=== PATIENT | female | born 1990 | race Caucasian/White ===

== ENCOUNTER → 2016-12-31 | Outpatient (CLI) | payer BC | LOC: MOB LAB 13:08 | PROVIDERS: ATTEND Obstetrics & Gynecology | DX: Z36 Encounter for antenatal screening of mother (principal) | CPT/HCPCS: 36415; 84702; 87491; 87591 ==

== ENCOUNTER → 2017-01-27 | Outpatient (CLI) | payer OTHER ==
[2017-01-27 10:14] LABS: BASOPHILS # (AUTO) 0.03 10*3/UL; BASOPHILS % (AUTO) 0.5 % (0-1); HEMATOCRIT 42.8 % (37.0-47.0); HEMOGLOBIN 14.8 g/dL (12.0-16.0); IMM GRAN % (AUTO) 0.2 % (0-5); IMM GRAN# (AUTO) 0.01 10*3/UL; LYMPHOCYTES # (AUTO) 1.41 10*3/uL; LYMPHOCYTES % (AUTO) 24.4 % (10-50); MEAN CORPUSCULAR HEMOGLOBIN 29.4 PG (27-31); MEAN CORPUSCULAR HGB CONC 34.6 g/dL (33-37); MEAN PLATELET VOLUME 10.8 FL (7.4-12.2); MONOCYTES # (AUTO) 0.42 10*3/UL (0.3-0.8); MONOCYTES % (AUTO) 7.3 % (5-15); NEUTROPHILS # (AUTO) 3.85 10*3/UL; NEUTROPHILS % (AUTO) 66.6 % (50-80); RDW COEFFICIENT OF VARIATION 13.6 % (11.5-14.5); RED BLOOD COUNT 5.04 10^6/uL (4.20-5.40); WHITE BLOOD COUNT 5.78 10^3/uL (4.8-10.8)
[2017-01-27 10:18] LABS: PRENATAL QUESTION YES (Y)
[2017-01-27 10:19] LABS: PLATELET MORPHOLOGY COMMENT NORMAL MORPHOLOGY (NORM)
[2017-01-27 12:12] LABS: HIV ANTIBODY NEGATIVE (N); HIV-1 P24 ANTIGEN NEGATIVE (N)
[2017-01-28 11:15] LABS: HEP B SURFACE AG Negative (Negative)
[2017-01-28 13:51] LABS: RUBELLA IGG INDEX 1.7 (()); SYPHILIS IGG WITH REFLEX Negative (Negative)
== END ==
LOC: MOB LAB 09:16
PROVIDERS: ATTEND Obstetrics & Gynecology
DX: Z36 Encounter for antenatal screening of mother (principal)
CPT/HCPCS: 36415; 80081; 86900; 86901; 87088

== ENCOUNTER 2017-02-02 08:52 | Emergency (ER) | payer OTHER ==
[2017-02-02 09:15] VITALS: RESP 16; TEMP 96.8
[2017-02-02] MEDS ORDERED: NORMAL SALINE 10 ML SYRINGE FLUSH IVP PRN (09:23)
[2017-02-02] MEDS ORDERED: ONDANSETRON 4 MG/2 ML VIAL IVP ONE (09:23)
[2017-02-02] MEDS ORDERED: Sodium Chloride 0.9% 1,000 ML PRIMARY IV ONE (09:23)
[2017-02-02] MEDS ORDERED: ONDANSETRON 4 MG/2 ML VIAL ONE (09:25)
[2017-02-02 09:38] LABS: BASOPHILS # (AUTO) 0.03 10*3/UL; BASOPHILS % (AUTO) 0.5 % (0-1); EOSINOPHILS % (AUTO) 0.8 % (0-8); HEMATOCRIT 40.3 % (37.0-47.0); HEMOGLOBIN 13.9 g/dL (12.0-16.0); IMM GRAN % (AUTO) 0.2 % (0-5); IMM GRAN# (AUTO) 0.01 10*3/UL; LYMPHOCYTES # (AUTO) 1.63 10*3/uL; LYMPHOCYTES % (AUTO) 26.5 % (10-50); MEAN CORPUSCULAR HEMOGLOBIN 29.2 PG (27-31); MEAN CORPUSCULAR HGB CONC 34.5 g/dL (33-37); MEAN PLATELET VOLUME 10.3 FL (7.4-12.2); MONOCYTES # (AUTO) 0.43 10*3/UL (0.3-0.8); NEUTROPHILS # (AUTO) 3.99 10*3/UL; RDW COEFFICIENT OF VARIATION 13.4 % (11.5-14.5); RED BLOOD COUNT 4.76 10^6/uL (4.20-5.40); WHITE BLOOD COUNT 6.14 10^3/uL (4.8-10.8)
[2017-02-02 09:39] LABS: AMYLASE 76 U/L (30-110); ASPARTATE AMINO TRANSFERASE 14 IU/L (8-39); BILIRUBIN,TOTAL 0.4 mg/dL (0.3-1.2); BLOOD UREA NITROGEN 6 mg/dL (7-22); CALCIUM 9.1 mg/dL (8.7-10.7); CHLORIDE 106 meq/L (98-112); CREATININE 0.5 mg/dL (0.50-1.20); EST GLOMERULAR FILTRATION > 60 (>60 ml/min/1.73m(2)); GLUCOSE 90 mg/dL (78-110); POTASSIUM 3.7 meq/L (3.8-5.2); SODIUM 138 meq/L (135-145); TOTAL PROTEIN 6.9 g/dL (6.1-8.0)
[2017-02-02 09:41] LABS: PLATELET MORPHOLOGY COMMENT NORMAL MORPHOLOGY (NORM)
[2017-02-02] MEDS ORDERED: ACETAMINOPHEN 325 MG TABLET PO ONE (10:09)
[2017-02-02 10:33] LABS: BILIRUBIN,URINE NEGATIVE (NEG); CLARITY,URINE CLEAR (CLEAR); GLUCOSE, URINE (UA) NEGATIVE (NEG); LEUKOCYTE ESTERASE ,URINE NEGATIVE (NEG); NITRATE,URINE NEGATIVE (NEG); OCCULT BLOOD,URINE NEGATIVE (NEG); PH,URINE 5.5 (5.0-8.5); PROTEIN,URINE NEGATIVE (NEG); UROBILINOGEN,URINE 0.2 EU/dL (0.2)
[2017-02-02 10:34] LABS: URINE SAMPLE TYPE VOIDED SPECIMEN
--- NOTE | 2017-02-02 15:28 | PDOC ---
Nausea/Vomiting/Diarrhea HPI - General Chief Complaint: Nausea / Vomiting / Diarrhea Stated Complaint: VOMITING SINCE 129 Date Seen by Provider: 02/02/17 Time Seen by Provider: 09:15 Source: POSITIVE: Patient Exam Limitations: POSITIVE: No limitations Nurse's Notes Reviewed & Considered: Yes - History of Present Illness Initial Comments: The patient is a 26-year-old at approximately 10 weeks gestational age who presents to the emergency department with vomiting. She states that she has had some mild morning sickness symptoms since onset of current . This morning at approximately 1 AM she had onset of increased nausea and multiple episodes of emesis. She states that she has vomited at least 12 times. The last couple of times have just been dry heaves. She denies any associated abdominal pain, vaginal bleeding or cramping, vaginal discharge or urinary symptoms. She just saw her ore puncher last week and had an ultrasound which revealed a viable intrauterine at that time. - Patient Home Medications Home Medications: Home Medications Pnv95/Ferrous Fumarate/FA [ Formula Tablet] 1 tab PO DAILY tab Amoxicillin 500 mg PO Q8H #21 cap 02/02/17 Ondansetron Odt [Zofran Odt] 8 mg PO Q6H #10 tab.rapdis 02/02/17 - Patient Allergies Allergies/Adverse Reactions: Allergies Allergy/AdvReac Type Severity Reaction Status Date / Time No Known Allergies Allergy Verified 02/02/17 09:03 Past Medical History - heen HEENT History: Denies History Cardiovascular History: Denies History Respiratory History: Asthma Gastrointestinal History: Peptic Ulcer Disease, Celiac Disease Genitourinary History: Kidney Stones Endocrine History: Denies History Musculoskeletal History: Denies History Neurological History: Denies History Blood Disorders: Denies History Psychiatric History: Denies History History of Sexually Transmitted Diseases: No Female Reproductive History: Denies History Obstetrical History: Other (please comment) Additional Obstetrical History: CURRENTLY Cancer History: Denies History In Past Year Been Physically Harmed or Verbally Threatened: No History of MDRO: No History of Other Communicable Diseases: No Tobacco Use: Never Smoker Alcohol Use: None Substance Use Type: None Previous Surgical History: Yes Type / Date of Surgery: tonsilectomy Anesthesia Reactions: No Significant Family History: No pertinent family hx Past Medical History Reviewed: Reviewed - No Changes ROS - Limitations ROS Limitations: No Limitations Constitution: DENIES: Chills, Fever Cardiovascular: REPORTS: Denies Cardiac Symptoms Respiratory: REPORTS: Denies Resp Symptoms Neurological: DENIES: Headache Gastrointestinal: REPORTS: Nausea, Vomitting. DENIES: Abdominal Pain Endocrine: REPORTS: Denies Symptoms Musculoskeletal: REPORTS: Denies MS Symptoms Genitourinary: REPORTS: Denies Symptoms Eyes: REPORTS: Denies Symptoms ENT: REPORTS: Denies Symptoms Nausea/Vomiting/Diarrhea Exam - General Appearance General Appearance: POSITIVE: Alert, Cooperative, No Acute Distress - HEENT HEENT: POSITIVE: Head Inspection Nml, Eyes Inspection Nml, Ears Inspection Nml, Pharynx Inspect. Nml - Neck Neck: POSITIVE: Supple. NEGATIVE: Lymphadenopathy - Respiratory Respiratory: POSITIVE: No Respiratory Distress, Breath Sounds Normal - Cardiovascular Cardiovascular: POSITIVE: Regular Rate and Rhythm, Heart Sounds Normal - Abdomen Abdomen: Soft: (All Quadrants), Denies Tenderness: (All Quadrants), No Distention: (All Quadrants) Additional Abdominal Details: Bedside ultrasound of the was attempted however the patient had just urinated and her bladder was empty decreasing visualization and the could not be well visualized. - Back Back: POSITIVE: Normal Inspection - Skin Skin: POSITIVE: Intact, No Rash - Extremities Extremity: Normal ROM: (All Extremities), Normal Inspection: (All Extremities) - Neurological / Psychological Neurological: POSITIVE: Other (No focal neurologic deficits) N/V/D Progress - Results Reviewed by me Lab Results Reviewed: Yes Lab Results:: Laboratory Results 02/02/17 02/02/17 Range/Units 09:16 10:29 WBC 6.14 (4.8-10.8) 10^3/uL RBC 4.76 (4.20-5.40) 10^6/uL Hgb 13.9 (12.0-16.0) g/dL Hct 40.3 (37.0-47.0) % MCV 84.7 (81-99) FL MCH 29.2 (27-31) PG MCHC 34.5 (33-37) g/dL RDW Std Deviation 41.3 (39-50) fL RDW Coeff of Josse 13.4 (11.5-14.5) % Plt Count 234 (140-350) 10*3/uL MPV 10.3 (7.4-12.2) FL Immature Gran % (Auto) 0.2 (0-5) % Neut % (Auto) 65.0 (50-80) % Lymph % (Auto) 26.5 (10-50) % [place] % (Auto) 7.0 (5-15) % Eos % (Auto) 0.8 (0-8) % Baso % (Auto) 0.5 (0-1) % Immature Gran # (Auto) 0.01 10*3/UL Neut # (Auto) 3.99 10*3/UL Lymph # (Auto) 1.63 10*3/uL [place] # (Auto) 0.43 (0.3-0.8) 10*3/UL Eos # (Auto) 0.05 10*3/UL Baso # (Auto) 0.03 10*3/UL WBC Morphology Comment Normal morphology (NORM) Plt Morphology Comment Normal morphology (NORM) RBC Morph Comment Normal morphology (NORM) Sodium 138 (135-145) meq/L Potassium 3.7 L (3.8-5.2) meq/L Chloride 106 (98-112) meq/L Carbon Dioxide 21 L (23-33) meq/L Anion Gap 11 (5-20) BUN 6 L (7-22) mg/dL Creatinine 0.5 (0.50-1.20) mg/dL Estimated GFR > 60 (>60 ml/min/1.73m(2)) BUN/Creatinine Ratio 12.00 (6-20) Glucose 90 (78-110) mg/dL Calculated Osmolality 283.0 (267-292) mOsm/kg Calcium 9.1 (8.7-10.7) mg/dL Total Bilirubin 0.4 (0.3-1.2) mg/dL AST 14 (8-39) IU/L ALT 18 (9-52) IU/L Alkaline Phosphatase 44 (38-126) IU/L Total Protein 6.9 (6.1-8.0) g/dL Albumin 4.0 (3.5-4.8) g/dL Globulin 2.8 (2.50-4.10) g/dL Albumin/Globulin Ratio 1.40 (1.3-2.0) mg/g Amylase 76 (30-110) U/L Lipase 154 (23-300) IU/L HCG, Quant 747302 mIU/ML Ur Collection Type Voided specimen Urine Color Yellow Urine Clarity Clear (CLEAR) Urine pH 5.5 (5.0-8.5) Ur Specific [place] 1.010 (1.005-1.030) Urine Protein Negative (NEG) mg/dl Urine Glucose (UA) Negative (NEG) mg/dL Urine Ketones Negative (NEG) Urine Occult Blood Negative (NEG) Urine Nitrate Negative (NEG) Urine Bilirubin Negative (NEG) Urine Urobilinogen 0.2 (0.2) EU/dL Ur Leukocyte Esterase Negative (NEG) Ur Culture Indicated? Pending - Patient's Progress MDM / ED Course: Shortly after arrival an IV was established and the patient did receive 1 L bolus of normal saline as well as Zofran 4 mg IV after which she was feeling significantly better. She did report that while vomiting earlier this morning she had broke one of her left lower molars and was having some dental pain. She did receive Tylenol 650 mg by mouth for this which she was able to keep down. Her blood work is all essentially unremarkable. I was unable to visualize the with bedside ultrasound as she had an empty bladder however she did have an ultrasound done at the OB clinic last week which was normal and I did not feel that this needed to be repeated as she is not having any abdominal or pelvic complaints. She was started on amoxicillin 500 mg 3 times a day for 7 days for treatment of the broken tooth. She is advised to continue Tylenol as needed for pain. In addition she was prescribed Zofran as needed for nausea and advised to try vitamin B6 as well. She will return to the emergency room if increased vomiting or dehydration, any worsening or change in symptoms. She will follow-up with her ore puncher if continued symptoms and she was advised follow-up with the dentist regarding her tooth. - Consult Counseled: POSITIVE: Patient, RE: Lab Results, RE: DX, RE: Need for F/U Patient Care Time - Estimated PCT Patient Care Time (In Minutes): 25 Vital Signs - Recent Vital Signs Vital Signs: Vital Signs (Last 8 hours) Temp Pulse Resp BP Pulse Ox 02/02/17 09:07 96.8 F 76 16 116/80 99 - VS Reviewed Vital Signs Reviewed: Yes Discharge Clinical Impression: Vomiting of , Broken tooth Condition: Stable Prescriptions / Orders: Amoxicillin 500 mg PO Q8H #21 cap Ondansetron Odt [Zofran Odt] 8 mg PO Q6H #10 tab.rapdis Patient Instructions Given at Discharge: Acute Nausea and Vomiting (ED), Toothache (ED) Additional Instructions: You have been started on amoxicillin 500 mg 3 times a day for 7 days because of the broken tooth to prevent infection. Continue Tylenol as needed for pain. You have also been prescribed Zofran 8 mg which she can take every 6 hours as needed for nausea/vomiting. In addition you can try vitamin B 650 mg every 8 hours as needed for nausea which is [id number]. Return to the emergency room if increased vomiting or dehydration, abdominal pain, vaginal bleeding or cramping, any worsening or change in symptoms. Follow-up at your regularly scheduled OB visit, sooner if continued problems. Follow Up With: LILIL DEUTSCH [Primary Care Provider] -
== END 2017-02-02 11:39 | disposition home or self-care (01) ==
LOC: ER 08:52
DX: O21.0 Mild hyperemesis gravidarum (principal); S02.5XXA Fracture of tooth (traumatic), initial encounter for closed fracture; Z3A.10 10 weeks gestation of pregnancy
CPT/HCPCS: 80053; 81003; 82150; 83690; 84702; 85025; 96361; 96374; 99283; J2405; J7030

== ENCOUNTER 2017-02-04 15:18 | Emergency (ER) | payer OTHER ==
[2017-02-04 15:58] VITALS: RESP 16; TEMP 97
[2017-02-04] MEDS ORDERED: DEXTROSE IV ONE (15:58)
[2017-02-04] MEDS ORDERED: NORMAL SALINE 10 ML SYRINGE FLUSH IVP PRN (15:58)
[2017-02-04] MEDS ORDERED: CLINDAMYCIN IV ONE (15:58)
[2017-02-04 16:43] LABS: BASOPHILS # (AUTO) 0.03 10*3/UL; BASOPHILS % (AUTO) 0.4 % (0-1); EOSINOPHILS # (AUTO) 0.05 10*3/UL; EOSINOPHILS % (AUTO) 0.7 % (0-8); HEMATOCRIT 40.9 % (37.0-47.0); HEMOGLOBIN 14.1 g/dL (12.0-16.0); LYMPHOCYTES # (AUTO) 1.83 10*3/uL; MEAN CORPUSCULAR HEMOGLOBIN 29.3 PG (27-31); MEAN CORPUSCULAR HGB CONC 34.5 g/dL (33-37); MEAN PLATELET VOLUME 10.2 FL (7.4-12.2); MONOCYTES # (AUTO) 0.55 10*3/UL (0.3-0.8); MONOCYTES % (AUTO) 8.2 % (5-15); NEUTROPHILS # (AUTO) 4.22 10*3/UL; NEUTROPHILS % (AUTO) 63.1 % (50-80); RED BLOOD COUNT 4.82 10^6/uL (4.20-5.40)
[2017-02-04 16:45] LABS: PLATELET MORPHOLOGY COMMENT NORMAL MORPHOLOGY (NORM); RBC MORPHOLOGY COMMENT NORMAL MORPHOLOGY (NORM); WBC MORPHOLOGY COMMENT NORMAL MORPHOLOGY (NORM)
--- NOTE | 2017-02-04 16:47 | PDOC ---
Sore Throat/Dental Pain HPI - General Chief Complaint: Nasal/Mouth Problem /Injury Stated Complaint: dental pain/swelling; 10wks iup Date Seen by Provider: 02/04/17 Time Seen by Provider: 15:30 Source: POSITIVE: Patient Exam Limitations: POSITIVE: No limitations Nurse's Notes Reviewed & Considered: Yes - History of Present Illness Initial Comments: The patient is a 26-year-old at approximately 10 weeks gestational age who returns to the emergency department with worsening left dental pain and now swelling to the left jaw. She was seen here in the emergency room 2 days ago with nausea and vomiting and received IV fluids. At that time she also reported that a tooth on her left lower molar had broken slightly. She had been placed on amoxicillin at that time. She states that despite taking the amoxicillin she has developed increased pain and swelling to the left jaw. She denies any fevers or chills and denies any difficulty swallowing. Her nausea and vomiting has improved significantly. She does report taking Tylenol however 5216-4073 mg every 4-6 hours and this has not been relieving her pain. - Patient Home Medications Home Medications: Home Medications Pnv95/Ferrous Fumarate/FA [ Formula Tablet] 1 tab PO DAILY tab Amoxicillin 500 mg PO Q8H #21 cap 02/02/17 Ondansetron Odt [Zofran Odt] 8 mg PO Q6H #10 tab.rapdis 02/02/17 Clindamycin HCl [Cleocin HCl] 300 mg PO TID #21 capsule 02/04/17 HYDROcodone/APAP 5/325 Tab [[place] 5/325 Tab] 1 - 2 each PO Q6H #15 tablet Ondansetron Odt [Zofran Odt] 8 mg PO Q6H PRN #10 tab.rapdis 02/04/17 - Patient Allergies Allergies/Adverse Reactions: Allergies Allergy/AdvReac Type Severity Reaction Status Date / Time No Known Allergies Allergy Verified 02/04/17 15:41 Past Medical History - heen HEENT History: Denies History Cardiovascular History: Denies History Respiratory History: Asthma Gastrointestinal History: Peptic Ulcer Disease, Celiac Disease Genitourinary History: Kidney Stones Endocrine History: Denies History Musculoskeletal History: Denies History Neurological History: Denies History Blood Disorders: Denies History Psychiatric History: Denies History History of Sexually Transmitted Diseases: No Female Reproductive History: Denies History LMP: nov 2016 Obstetrical History: Denies History : 3 Para: 2 Cancer History: Denies History In Past Year Been Physically Harmed or Verbally Threatened: No History of MDRO: No History of Other Communicable Diseases: No Tobacco Use: Never Smoker Alcohol Use: None Substance Use Type: None Previous Surgical History: Yes Type / Date of Surgery: tonsilectomy Anesthesia Reactions: No Significant Family History: No pertinent family hx Past Medical History Reviewed: Reviewed - No Changes ROS - Limitations ROS Limitations: No Limitations Constitution: DENIES: Chills, Fever Cardiovascular: REPORTS: Denies Cardiac Symptoms Respiratory: REPORTS: Denies Resp Symptoms Gastrointestinal: DENIES: Abdominal Pain Genitourinary: REPORTS: Denies Symptoms. DENIES: Discharge Eyes: REPORTS: Denies Symptoms ENT: REPORTS: Denies Symptoms Skin: DENIES: Rash Sore Throat/Dental Pain Exam - General Appearance General Appearance: REPORTS: Alert, Cooperative, No Acute Distress - HEENT Head / Face: POSITIVE: Other (She does have some mild swelling to the left lower mandible) Eyes: POSITIVE: Inspection Normal Ears: POSITIVE: Ears Normal Inspection Nose: POSITIVE: Inspection Normal Oropharynx: POSITIVE: External Inspection Nml, Pharynx Inspect. Nml, Airway Intact, Voice Normal, Moist Mucous Membranes Neck: POSITIVE: Supple. NEGATIVE: Lymphadenopathy Dental: POSITIVE: Other (She does have several lower molars on the left side that have caries and one that is broken off at the gum, there is some mild surrounding erythema and swelling to the gum line) - Respiratory Respiratory: REPORTS: No Respiratory Distress, Breath Sounds Normal - Cardiovascular Cardiovascular: REPORTS: Regular Rate and Rhythm, Heart Sounds Normal - Abdomen Abdomen: Soft: (All Quadrants), Denies Tenderness: (All Quadrants), No Distention: (All Quadrants) - Extremities Extremity: Normal ROM: (All Extremities), Normal Inspection: (All Extremities) - Skin Skin: REPORTS: Intact, No Rash Sore Throat/Dental Progress - Results Reviewed by me Lab Results:: Laboratory Results 02/04/17 Range/Units 16:10 WBC 6.70 (4.8-10.8) 10^3/uL RBC 4.82 (4.20-5.40) 10^6/uL Hgb 14.1 (12.0-16.0) g/dL Hct 40.9 (37.0-47.0) % MCV 84.9 (81-99) FL MCH 29.3 (27-31) PG MCHC 34.5 (33-37) g/dL RDW Std Deviation 42.0 (39-50) fL RDW Coeff of Josse 13.7 (11.5-14.5) % Plt Count 264 (140-350) 10*3/uL MPV 10.2 (7.4-12.2) FL Immature Gran % (Auto) 0.3 (0-5) % Neut % (Auto) 63.1 (50-80) % Lymph % (Auto) 27.3 (10-50) % [place] % (Auto) 8.2 (5-15) % Eos % (Auto) 0.7 (0-8) % Baso % (Auto) 0.4 (0-1) % Immature Gran # (Auto) 0.02 10*3/UL Neut # (Auto) 4.22 10*3/UL Lymph # (Auto) 1.83 10*3/uL [place] # (Auto) 0.55 (0.3-0.8) 10*3/UL Eos # (Auto) 0.05 10*3/UL Baso # (Auto) 0.03 10*3/UL WBC Morphology Comment Normal morphology (NORM) Plt Morphology Comment Normal morphology (NORM) RBC Morph Comment Normal morphology (NORM) Sodium 137 (135-145) meq/L Potassium 3.8 (3.8-5.2) meq/L Chloride 104 (98-112) meq/L Carbon Dioxide 21 L (23-33) meq/L Anion Gap 12 (5-20) BUN 9 (7-22) mg/dL Creatinine 0.5 (0.50-1.20) mg/dL Estimated GFR > 60 (>60 ml/min/1.73m(2)) BUN/Creatinine Ratio 18.00 (6-20) Glucose 79 (78-110) mg/dL Calculated Osmolality 281.0 (267-292) mOsm/kg Calcium 9.3 (8.7-10.7) mg/dL Total Bilirubin 0.3 (0.3-1.2) mg/dL AST 20 (8-39) IU/L ALT 18 (9-52) IU/L Alkaline Phosphatase 50 (38-126) IU/L C-Reactive Protein 1.6 H (0.0-0.9) mg/dL Total Protein 7.7 (6.1-8.0) g/dL Albumin 4.5 (3.5-4.8) g/dL Globulin 3.2 (2.50-4.10) g/dL Albumin/Globulin Ratio 1.40 (1.3-2.0) mg/g Acetaminophen 33 H (0-30) ug/mL - Patient's Progress MDM / ED Course: Because of her recent Tylenol use I elected to go ahead and check Tylenol level. Her last dose of Tylenol was at noon today which is approximately 4 hours ago. We'll also check liver enzymes. She also received clindamycin 600 mg IV for treatment of the dental infection. Her liver enzymes and Tylenol levels were unremarkable. She was discharged home and advised to discontinue amoxicillin and start clindamycin 300 mg 3 times a day for 7 days. She was given a prescription for [place] as needed for pain and advised not to exceed 3500 mg of Tylenol in 24 hours. She is advised return to the emergency room she develops increased swelling or pain, dehydration, any worsening or change in symptoms. She is advised follow-up with the dentist as soon as possible. - Consult Counseled: POSITIVE: Patient, RE: Lab Results, RE: DX, RE: Need for F/U Patient Care Time - Estimated PCT Patient Care Time (In Minutes): 20 Vital Signs - VS Reviewed Vital Signs Reviewed: Yes Discharge Clinical Impression: Dental abscess Discharge Disposition: Discharged to Home Condition: Stable Prescriptions / Orders: Clindamycin HCl [Cleocin HCl] 300 mg PO TID #21 capsule HYDROcodone/APAP 5/325 Tab [[place] 5/325 Tab] 1 - 2 each PO Q6H #15 tablet Ondansetron Odt [Zofran Odt] 8 mg PO Q6H PRN #10 tab.rapdis PRN Reason: Nausea / Vomiting Patient Instructions Given at Discharge: Dental Abscess (ED) Additional Instructions: Discontinue amoxicillin. Start clindamycin 300 mg 3 times a day for 7 days. You have been prescribed [place] 5/325 which he can take one or 2 every 6 hours as needed for pain. This is not to be taken in combination with plain Tylenol. Once the pain is improved you can return to taking plain Tylenol however no more than 3500 mg and one day. Return to the emergency room if increased swelling or pain, difficulty swallowing, fevers or chills, any worsening or change in symptoms. Recommend dental follow-up. Follow Up With: LILLI DEUTSCH [Primary Care Provider] -
[2017-02-04 16:52] LABS: BLOOD UREA NITROGEN 9 mg/dL (7-22); C-REACTIVE PROTEIN 1.6 mg/dL (0.0-0.9); CALCIUM 9.3 mg/dL (8.7-10.7); EST GLOMERULAR FILTRATION > 60 (>60 ml/min/1.73m(2)); SERUM ALBUMIN 4.5 g/dL (3.5-4.8)
== END 2017-02-04 17:31 | disposition home or self-care (01) ==
LOC: ER 15:18
DX: O26.891 Other specified pregnancy related conditions, first trimester (principal); K04.7 Periapical abscess without sinus; Z3A.10 10 weeks gestation of pregnancy
CPT/HCPCS: 80053; 80329; 85025; 86140; 96365; 99282; 99283; J3490

== ENCOUNTER 2017-02-19 20:37 | Emergency (ER) | payer OTHER ==
[2017-02-19 20:59] VITALS: RESP 18; TEMP 96.9
[2017-02-19 21:21] LABS: BASOPHILS # (AUTO) 0.02 10*3/UL; BASOPHILS % (AUTO) 0.3 % (0-1); EOSINOPHILS # (AUTO) 0.06 10*3/UL; HEMATOCRIT 39.2 % (37.0-47.0); HEMOGLOBIN 13.7 g/dL (12.0-16.0); LYMPHOCYTES # (AUTO) 1.76 10*3/uL; MEAN CORPUSCULAR HEMOGLOBIN 29.6 PG (27-31); MEAN CORPUSCULAR HGB CONC 34.9 g/dL (33-37); MEAN CORPUSCULAR VOLUME 84.7 FL (81-99); MONOCYTES % (AUTO) 8.1 % (5-15); NEUTROPHILS # (AUTO) 3.82 10*3/UL; NEUTROPHILS % (AUTO) 61.9 % (50-80); PLATELET MORPHOLOGY COMMENT NORMAL MORPHOLOGY (NORM); RBC MORPHOLOGY COMMENT NORMAL MORPHOLOGY (NORM); RED BLOOD COUNT 4.63 10^6/uL (4.20-5.40); WBC MORPHOLOGY COMMENT NORMAL MORPHOLOGY (NORM)
[2017-02-19] MEDS ORDERED: NORMAL SALINE 10 ML SYRINGE FLUSH IVP PRN (22:11)
--- NOTE | 2017-02-19 22:12 | DI ---
HISTORY: Vaginal bleeding in early . COMPARISON STUDIES: None. TECHNIQUE/FINDINGS: Grayscale evaluation of the gravid uterus demonstrates a gestational sac position ed within the uterine fundus, containing a yolk sac and pole. [place] rump length measurements ar e consistent with a 12-week, 1-day gestation. Heart rate is documented at 169 beats per minute. Cervi tabatha os appears closed. Placenta is posterior. The right and left adnexal regions are unremarkable. No adnexal masses are identified. No free fluid is seen within the cul-de-sac. IMPRESSION: 1. Single live intrauterine . Images consistent with a 12-week, 1-day gestation. 2. No evidence of acute abnormality.
--- NOTE | 2017-02-20 01:52 | PDOC ---
Female Problem HPI - General Chief Complaint: Vag Complaint/Bleed, <20WK IUP Stated Complaint: CRAMPING AND VAGINAL BLEEDING 12 WEEKS GEST. Date Seen by Provider: 02/19/17 Time Seen by Provider: 20:50 Source: POSITIVE: Patient Exam Limitations: POSITIVE: No limitations Nurse's Notes Reviewed & Considered: Yes - History of Present Illness Initial Comments: The patient is a 26-year-old female. Patient states she is 12 weeks and patient states that shortly after getting out of bed at around 7 AM this morning she noticed some vaginal spotting, which she states has been present since. She is 3 para 2 aborta 0. Mild lower abdominal cramping. Blood type is a positive. Last intercourse was approximately one week ago. Body Location Affected: REPORTS: Genitalia (Vaginal bleeding; 12 weeks ) Timing: REPORTS: Abrupt, Intermittent Duration: <24 hours Severity: Mild Quality: REPORTS: Cramping (Mild lower abdominal cramping) Context: REPORTS: Known Location of Pain: REPORTS: Pelvic Cramping Vaginal Bleeding: REPORTS: Abnormal Bleeding, Spotting : 3 Para: 2 : REPORTS: , Positive Test in Clinic, Positive Test at Home, Care Sexual History: REPORTS: Active Urinary Symptoms: DENIES: Blood in Urine, Frequent Urination, Discomfort w/ Urination, Burning w/ Urination, Urinary Urgency, Painful Urination, Other Discharge: REPORTS: Other (Vaginal spotting; 12 weeks ) Similar Symptoms Previously: No Recent Care Received: REPORTS: Recently Seen, Treated by MD (Routine [employer] [facility] care ) Any Prior Injuries Related to Current Complaint?: No - Patient Home Medications Home Medications: Home Medications Pnv95/Ferrous Fumarate/FA [ Formula Tablet] 1 tab PO DAILY tab Ondansetron Odt [Zofran Odt] 8 mg PO Q6H PRN #10 tab.rapdis 02/04/17 - Patient Allergies Allergies/Adverse Reactions: Allergies Allergy/AdvReac Type Severity Reaction Status Date / Time No Known Allergies Allergy Verified 02/19/17 20:46 Past Medical History - heen HEENT History: Denies History Cardiovascular History: Denies History Respiratory History: Asthma Gastrointestinal History: Peptic Ulcer Disease, Celiac Disease Genitourinary History: Kidney Stones Endocrine History: Denies History Musculoskeletal History: Denies History Prosthesis or Implant: No Neurological History: Denies History Blood Disorders: Denies History Psychiatric History: Denies History History of Sexually Transmitted Diseases: No Female Reproductive History: Denies History Obstetrical History: Denies History Cancer History: Denies History In Past Year Been Physically Harmed or Verbally Threatened: No History of MDRO: No History of Other Communicable Diseases: No Tobacco Use: Never Smoker Alcohol Use: None Substance Use Type: None Previous Surgical History: Yes Type / Date of Surgery: tonsilectomy Anesthesia Reactions: No Significant Family History: No pertinent family hx Past Medical History Reviewed: Reviewed - No Changes ROS - Limitations ROS Limitations: No Limitations Constitution: REPORTS: Denies Symptoms Cardiovascular: REPORTS: Denies Cardiac Symptoms Respiratory: REPORTS: Denies Resp Symptoms Neurological: REPORTS: Denies Neuro Symptoms Gastrointestinal: REPORTS: Denies GI Symptoms Endocrine: REPORTS: Denies Symptoms Musculoskeletal: REPORTS: Denies MS Symptoms Genitourinary: REPORTS: Discharge (Vaginal spotting; 12 weeks ) Eyes: REPORTS: Denies Symptoms ENT: REPORTS: Denies Symptoms Skin: REPORTS: Denies Skin Symptoms Lympathic: REPORTS: Denies Lympathic Symptoms Immunologic: POSITIVE: Denies Symptoms Psychiatric: POSITIVE: Denies Psych Symptoms Female Genitourinary Exam - General Appearance General Appearance: POSITIVE: Alert, Cooperative, No Acute Distress, No Evidence of Trauma - Neck Neck: POSITIVE: Normal Inspection, No Apparent Injury - Respiratory Respiratory: POSITIVE: No Respiratory Distress, Breath Sounds Normal, Chest Non- Tender - Cardiovascular Cardiovascular: POSITIVE: Regular Rate and Rhythm, Heart Sounds Normal, Equal Pulses, Strong Pulses Peripheral Pulses: Radial (R): 2+, Radial (L): 2+ - Abdomen Abdomen: POSITIVE: Soft, Normal Bowel Sounds, Non-Tender, No Distention, No Organomegaly - Back Back: POSITIVE: Normal Inspection - Genital / Rectal Pelvic Exam: POSITIVE: Cervix (Cervical os closed and cervix nontender), Vagina (Normal), Uterus (Uterus mildly enlarged; nontender), Adnexa (Normal), External Exam Normal, Speculum Exam Normal, Bimanual Exam Normal, Vaginal Bleeding ( Slight vaginal bleeding noted at this time; cervix not friable), Blood In Vaginal Vault (Slight amount of blood in vaginal vault), Enlrgd Consistent w/ Dates. NEGATIVE: Clots in vaginal Vault, Cervicitis, Tissue Present in Cervix, Tissue Present in Vagina, Cervical Motion Tender, Cervical Dilation, Adnexal Tenderness, Adnexal Mass, Enlarged Uterus, Tender Uterus, Perineal Hematoma - Skin Skin: POSITIVE: Intact, Normal For Race, Warm, Dry, No Rash - Extremities Extremity: Non-Tender: (All Extremities), Normal ROM: (All Extremities), Normal Inspection: (All Extremities) - Neurological / Psychological Neurological: POSITIVE: Oriented X3, metalizer Normal As Tested, Motor Normal, Sensation Normal, 5, 6 Female Genitourinary Progress - Results Reviewed by me Xrays/CTs/US Reviewed by me: Yes Discussed with Radiologist: Yes Radiology Findings: Ultrasound discussed with the rag washer. Intrauterine at about 12 weeks' gestation; no abnormalities reported. Lab Results Reviewed: Yes Lab Results:: Laboratory Results 02/19/17 Range/Units 21:18 WBC 6.17 (4.8-10.8) 10^3/uL RBC 4.63 (4.20-5.40) 10^6/uL Hgb 13.7 (12.0-16.0) g/dL Hct 39.2 (37.0-47.0) % MCV 84.7 (81-99) FL MCH 29.6 (27-31) PG MCHC 34.9 (33-37) g/dL RDW Std Deviation 43.0 (39-50) fL RDW Coeff of Josse 14.2 (11.5-14.5) % Plt Count 239 (140-350) 10*3/uL MPV 10.0 (7.4-12.2) FL Immature Gran % (Auto) 0.2 (0-5) % Neut % (Auto) 61.9 (50-80) % Lymph % (Auto) 28.5 (10-50) % Castro % (Auto) 8.1 (5-15) % Eos % (Auto) 1.0 (0-8) % Baso % (Auto) 0.3 (0-1) % Immature Gran # (Auto) 0.01 10*3/UL Neut # (Auto) 3.82 10*3/UL Lymph # (Auto) 1.76 10*3/uL Castro # (Auto) 0.50 (0.3-0.8) 10*3/UL Eos # (Auto) 0.06 10*3/UL Baso # (Auto) 0.02 10*3/UL WBC Morphology Comment Normal morphology (NORM) Plt Morphology Comment Normal morphology (NORM) RBC Morph Comment Normal morphology (NORM) HCG, Quant 21800 mIU/ML - Patient's Progress Pain Medication Addressed: POSITIVE: Not Applicable School/Work Release Addressed: POSITIVE: Not Applicable Re-Examine Time: 22:00 Re-Examine Comment: Patient remained comfortable throughout her stay in the emergency room. Status: POSITIVE: Unchanged, Re-Examined Rhogam Given: No (blood type A+) - Consult Counseled: POSITIVE: Patient, RE: Lab Results, RE: Radiology Results, RE: DX, RE : Need for F/U Patient Care Time - Estimated PCT Patient Care Time (In Minutes): 40 Vital Signs - Recent Vital Signs Vital Signs: Vital Signs (Last 8 hours) Temp Pulse Resp BP Pulse Ox 02/19/17 20:43 96.9 F 101 H 18 127/86 97 - VS Reviewed Vital Signs Reviewed: Yes Discharge Clinical Impression: Threatened Discharge Disposition: Discharged to Home Condition: Stable Patient Instructions Given at Discharge: Threatened Miscarriage (ED) Additional Instructions: Your ultrasound looks good and your blood test is normal. Bleeding in the first part of that has no other obvious causes what is known as a threatened miscarriage. This simply means that the likelihood of you having a miscarriage is somewhat higher than if you had no vaginal bleeding. Avoid intercourse until cleared for this activity by your set up inspector. Follow-up with your set up inspector in 2-3 days so that he can repeat a blood tests, known as a beta hCG test, which will give us some idea of how the is progressing. Rest. Return any time if you develop severe abdominal pain, massive vaginal bleeding, if tissue is passed, or as necessary. Follow Up With: LILLI DEUTSCH [Primary Care Provider] - (Instructions as above. Follow-up with your set up inspector in 2-3 days. Return here anytime if condition worsens.)
== END 2017-02-19 22:07 | disposition home or self-care (01) ==
LOC: ER 20:37
DX: O20.0 Threatened abortion (principal); Z3A.12 12 weeks gestation of pregnancy
CPT/HCPCS: 76801; 84702; 85025; 99283

== ENCOUNTER 2017-04-11 16:59 | Emergency (ER) | payer OTHER ==
--- NOTE | 2017-04-11 17:27 | PDOC ---
Sore Throat/Dental Pain HPI - General Chief Complaint: Nasal/Mouth Problem /Injury Stated Complaint: broken tooth Date Seen by Provider: 04/11/17 Time Seen by Provider: 17:15 Source: POSITIVE: Patient Exam Limitations: POSITIVE: No limitations Nurse's Notes Reviewed & Considered: Yes - History of Present Illness Initial Comments: The patient is a 27-year-old at approximately 19-1/2 weeks gestational age who presents to the emergency department with increased right lower molar pain. She states that a couple of days ago she was eating popcorn at the movie theater when she broke one of her right lower molars. She has had increased pain since then. She was unable to see the dentist yesterday and was evaluated at the walk-in clinic. She was prescribed hydrocodone however she has not been able to keep this down. She has tried taking it with food and taking a with Zofran and still has not been able to keep it down. She has been able to keep down plain water. She reports normal movement and activity, no contractions, no vaginal bleeding or discharge. She denies fevers or chills or any other associated symptoms. It's that the pain is now radiating up towards her right ear and down into her jaw and neck. - Patient Home Medications Home Medications: Home Medications Pnv95/Ferrous Fumarate/FA [ Formula Tablet] 1 tab PO DAILY tab Ondansetron [Zofran Odt] 8 mg PO TID #20 tab 03/24/17 Hydrocodone Bit/Acetaminophen [[place] 7.5-325 Tablet] 1 tab PO Q4-6H #15 tab Amoxicillin 500 mg PO Q8H #21 cap 04/11/17 oxyCODONE/APAP 5/325 Tab [Percocet 5/325 Tab] 1 tab PO Q6H PRN #15 tab - Patient Allergies Allergies/Adverse Reactions: Allergies Allergy/AdvReac Type Severity Reaction Status Date / Time No Known Allergies Allergy Verified 04/11/17 17:05 Past Medical History - heen HEENT History: Denies History Cardiovascular History: Denies History Respiratory History: Asthma Gastrointestinal History: Peptic Ulcer Disease, Celiac Disease Genitourinary History: Kidney Stones Endocrine History: Denies History Musculoskeletal History: Denies History Prosthesis or Implant: No Neurological History: Denies History Blood Disorders: Denies History Psychiatric History: Denies History History of Sexually Transmitted Diseases: No Cancer History: Denies History History of MDRO: No History of Other Communicable Diseases: No Alcohol Use: None Substance Use Type: None Previous Surgical History: Yes Type / Date of Surgery: tonsilectomy Anesthesia Reactions: No Significant Family History: No pertinent family hx Past Medical History Reviewed: Reviewed - No Changes ROS - Limitations ROS Limitations: No Limitations Constitution: REPORTS: Denies Symptoms Cardiovascular: REPORTS: Denies Cardiac Symptoms Respiratory: REPORTS: Denies Resp Symptoms Neurological: REPORTS: Denies Neuro Symptoms Gastrointestinal: REPORTS: Nausea, Vomitting (After taking hydrocodone) Musculoskeletal: REPORTS: Denies MS Symptoms Genitourinary: REPORTS: Denies Symptoms Eyes: REPORTS: Denies Symptoms ENT: REPORTS: Dental Pain. DENIES: Sore Throat, Trouble Swallowing Skin: DENIES: Rash Sore Throat/Dental Pain Exam - General Appearance General Appearance: REPORTS: Alert, Cooperative, No Acute Distress - HEENT Head / Face: POSITIVE: No Facial Swelling Eyes: POSITIVE: Inspection Normal Ears: POSITIVE: Ears Normal Inspection Nose: POSITIVE: Inspection Normal Oropharynx: POSITIVE: Pharynx Inspect. Nml, Airway Intact, Voice Normal, Moist Mucous Membranes Neck: POSITIVE: Supple. NEGATIVE: Lymphadenopathy Dental: POSITIVE: Other (She has a right lower molar that is broken, there is some surrounding erythema and swelling to the gum) - Respiratory Respiratory: REPORTS: No Respiratory Distress, Breath Sounds Normal - Cardiovascular Cardiovascular: REPORTS: Regular Rate and Rhythm, Heart Sounds Normal Peripheral Pulses: Dorsalis-pedis (L): 2+ - Abdomen Additional Abdominal Details: heart tones were dopplerable in the 160s per nursing staff - Extremities Extremity: Normal Inspection: (All Extremities) - Skin Skin: REPORTS: Intact, No Rash Sore Throat/Dental Progress - Patient's Progress MDM / ED Course: The patient will be started on amoxicillin 500 mg 3 times a day for 7 days. In addition she was prescribed Percocet which she can take one half to one every 4- 6 hours as needed for pain. She was advised to take this with food and she does have Zofran that she can take if needed for nausea. She is advised to return to the emergency room if she develops any increased pain or swelling, fevers or chills, difficulty swallowing, vomiting or dehydration, any worsening or change in symptoms. - Consult Counseled: POSITIVE: Patient, RE: DX, RE: Need for F/U Patient Care Time - Estimated PCT Patient Care Time (In Minutes): 10 Vital Signs - VS Reviewed Vital Signs Reviewed: Yes Discharge Clinical Impression: Broken tooth, Dental abscess Discharge Disposition: Discharged to Home Condition: Fair Prescriptions / Orders: Amoxicillin 500 mg PO Q8H #21 cap oxyCODONE/APAP 5/325 Tab [Percocet 5/325 Tab] 1 tab PO Q6H PRN #15 tab PRN Reason: Pain Patient Instructions Given at Discharge: Dental Abscess (ED), Toothache (ED) Additional Instructions: Start amoxicillin 500 mg 3 times a day for 7 days. We've also been prescribed Percocet 5/325 which she can take one half to one every 6 hours as needed for pain. Take with food and take Zofran 15 minutes prior to taking this medication. [place] diet with feeling nauseated. Also recommend trying dental wax. Return to the emergency room if increased pain or swelling, difficulty swallowing, dehydration, any worsening or change in symptoms. Recommend follow- up with a dentist as soon as possible. Follow Up With: LILLI DEUTSCH [Primary Care Provider] -
[2017-04-11 17:36] VITALS: RESP 15; TEMP 96.7
== END 2017-04-11 17:27 | disposition home or self-care (01) ==
LOC: ER 16:59
DX: O26.92 Pregnancy related conditions, unspecified, second trimester (principal); S02.5XXA Fracture of tooth (traumatic), initial encounter for closed fracture; R11.2 Nausea with vomiting, unspecified; K04.7 Periapical abscess without sinus
CPT/HCPCS: 99282

== ENCOUNTER → 2017-04-14 | Outpatient (CLI) | payer OTHER ==
--- NOTE | 2017-04-14 16:15 | DI ---
OBSTETRICAL ULTRASOUND, 04/14/2017 8:52 AM: Clinical History: Antepartum screening. Previous Exam: 02/19/2017. ADJUSTED DATE FROM EARLY OBUS: 11/26/2016. There is a single live IUP currently in vertex presentation. Amnionic fluid content is normal. activity is observed as follows: cardiac, extremity, and respiratory. The placenta is posterior corpu s and Grade 1. heart rate is 139 beats/minute and regular. There is a 3 vessel cord. The RVOT, LVOT and 4 chamber heart view are normal. The aortic arch and descending aorta are normal. Views of t he spine, face, and kidneys are unremarkable. BPD, HC, AC, and FL measurements are 49 mm, 182 m m, 152 mm, and 33 mm, respectively. These measurements correspond to EGA values of 20 weeks 6 days, 2 0 weeks 5 days, 20 weeks 3 days and 20 weeks 3 days, respectively. Composite EGA is 20 weeks 5 days. The US EDC is 08/27/2017. EDC by adjusted LMP is 09/02/2017. Readin. Single live fetus with vertex presentation and normal amniotic fluid content. Placenta is posteri or corpus and grade 1. 2. The composite EGA is 20 weeks 5 days with an ultrasound EDC of 08/27/2017. This is in contrast to the EDC of 09/02/2017, that is based on the adjusted LMP date of 11/26/2016.
== END ==
LOC: US 08:49
PROVIDERS: ATTEND Obstetrics & Gynecology
DX: Z36 Encounter for antenatal screening of mother (principal); Z3A.19 19 weeks gestation of pregnancy
CPT/HCPCS: 76805

== ENCOUNTER 2017-05-05 12:18 | Outpatient (CLI) | payer OTHER ==
[2017-05-05 13:59] VITALS: RESP 20; TEMP 98.2
--- NOTE | 2017-05-12 13:16 | PDOC(PROG) ---
Intake - - Reason for Visit/Chief Complaint: Cramping, Spotting Admitted From: Home - Estimated Due Date: 09/02/17 Gestational Age in Weeks and Days: 23 Weeks and 6 Days : 3 Para: 2 Term Births: 2 Births: 0 Number of Abortions (Spont./Elective): 0 Living Children: 2 - Labs Blood Type and Rh: A+ Group B Strep: Unknown Hepatitis B Surface Antigen: Absent HIV: Negative VDRL/RPR: Absent Maternal - Vital Signs Last Taken Vital Signs: Vital Signs - Last Taken Temperature 98.2 F 05/05/17 12:20 Pulse Rate 98 05/05/17 12:20 Respiratory Rate 20 05/05/17 12:20 Blood Pressure 123/79 05/05/17 12:20 Pulse Ox 98 05/05/17 12:20 - Uterine Activity Uterine Contraction Monitor Mode: External Contraction Frequency(minutes): 0 - Vaginal Discharge Vaginal Bleeding Amount: Spotting Vaginal Bleeding Description: Bright Red Vaginal Bleeding Onset: 0400 Vaginal Discharge Amount: None Vaginal Itching: No Monitoring - Uterine Activity Uterine Contraction Monitor Mode: External Contraction Frequency(minutes): 0 Assessment and Plan - Assessment / Plan Additional Assessment/Plan Details: No active bleeding. Reassuring maternal and evaluation. Discharge to home in good condition. - Time Time Spent With Patient: Less Than 15 Minutes
== END 2017-05-05 13:30 | disposition home or self-care (01) ==
LOC: OBOP 12:18
PROVIDERS: ATTEND Obstetrics & Gynecology
DX: O26.852 Spotting complicating pregnancy, second trimester (principal); O26.892 Other specified pregnancy related conditions, second trimester; R25.2 Cramp and spasm; Z3A.22 22 weeks gestation of pregnancy
CPT/HCPCS: 59025; 99211

== ENCOUNTER → 2017-06-10 | Outpatient (CLI) | payer OTHER ==
[2017-06-10 11:15] LABS: HEMATOCRIT 36.5 % (37.0-47.0); HEMOGLOBIN 12.3 g/dL (12.0-16.0); MEAN CORPUSCULAR HEMOGLOBIN 29.9 PG (27-31); MEAN CORPUSCULAR HGB CONC 33.7 g/dL (33-37); MEAN CORPUSCULAR VOLUME 88.8 FL (81-99); RED BLOOD COUNT 4.11 10^6/uL (4.20-5.40)
== END ==
LOC: LAB 09:50
PROVIDERS: ATTEND Obstetrics & Gynecology
DX: Z36 Encounter for antenatal screening of mother (principal); Z3A.28 28 weeks gestation of pregnancy
CPT/HCPCS: 36415; 82950; 85027

== ENCOUNTER 2017-07-10 10:11 | Outpatient (CLI) | payer OTHER ==
[2017-07-10 10:28] VITALS: RESP 16; TEMP 97.9
[2017-07-10] MEDS ORDERED: NORMAL SALINE 10 ML SYRINGE FLUSH IVP PRN (10:51)
--- NOTE | 2017-07-13 22:54 | PDOC(PROG) ---
Intake - - Reason for Visit/Chief Complaint: Cramping Admitted From: Home - Estimated Due Date: 09/02/17 Gestational Age in Weeks and Days: 32 Weeks and 5 Days : 3 Para: 2 Term Births: 2 Births: 0 Number of Abortions (Spont./Elective): 0 Living Children: 2 - Labs Blood Type and Rh: A+ Group B Strep: Unknown Maternal - Vital Signs Last Taken Vital Signs: Vital Signs - Last Taken Temperature 97.9 F 07/10/17 10:16 Pulse Rate 98 07/10/17 10:16 Respiratory Rate 16 07/10/17 10:16 Blood Pressure 125/89 07/10/17 10:16 Pulse Ox 100 07/10/17 10:16 - Uterine Activity Uterine Contraction Monitor Mode: External Contraction Frequency(minutes): none noted or palpated - Vaginal Discharge Vaginal Bleeding Amount: None Vaginal Discharge Amount: None Monitoring - Uterine Activity Uterine Contraction Monitor Mode: External Contraction Frequency(minutes): none noted or palpated Results - Bedside Testing Bedside Urine Ketone: Negative Bedside Urine Leukocytes Esterase: Negative Bedside Urine Nitrite: Negative Bedside Urine Occult Blood: Negative Bedside Urine Protein: Trace Bedside Specific [place]: 1.010 Assessment and Plan - Assessment / Plan Additional Assessment/Plan Details: No signs of PTL. Reassuring maternal and evaluation. Discharge to home in good condition. - Time Time Spent With Patient: Less Than 15 Minutes
== END 2017-07-10 11:04 | disposition home or self-care (01) ==
LOC: OBOP 10:11
PROVIDERS: ATTEND Obstetrics & Gynecology
DX: O26.893 Other specified pregnancy related conditions, third trimester (principal); R25.2 Cramp and spasm; Z3A.32 32 weeks gestation of pregnancy
CPT/HCPCS: 59025; 81003; 99211

== ENCOUNTER 2017-08-20 22:50 | Inpatient (IN) ==
[2017-08-21] MEDS ORDERED: TERBUTALINE SULFATE 1 MG/1 ML SDV SUBCUT PRN (01:14)
[2017-08-21] MEDS ORDERED: LIDOCAINE W/ SODIUM BICARB 0.5 ML SYR SUBD PRN ×2 (01:14→19:46)
[2017-08-21] MEDS ORDERED: OXYTOCIN 10 UNIT/1 ML IM PRN (01:14)
[2017-08-21] MEDS ORDERED: Famotidine Inj 20 MG in Normal Saline Flush 10 ML IVP PRN ×4 (01:14)
[2017-08-21] MEDS ORDERED: Phenylephrine Inj 50 MCG in Normal Saline Flush 0.5 ML IVP PRN (01:14)
[2017-08-21] MEDS ORDERED: NALOXONE 0.4 MG/1 ML VIAL IVP PRN (01:14)
[2017-08-21] MEDS ORDERED: CALCIUM CARBONATE 500 MG (TUMS) CHEWABLE TABLET PO PRN ×2 (01:14→19:39)
[2017-08-21] MEDS ORDERED: ONDANSETRON 4 MG/2 ML VIAL IVP PRN ×2 (01:14→19:39)
[2017-08-21] MEDS ORDERED: METHYLERGONOVINE MALEATE 0.2 MG/1 ML VIAL IM PRN (01:14)
[2017-08-21] MEDS ORDERED: diphenhydrAMINE 50 MG/1 ML VIAL IVP PRN ×2 (01:14→19:39)
[2017-08-21] MEDS ORDERED: Carboprost Inj 250 MCG/ML AMP IM PRN (01:14)
[2017-08-21] MEDS ORDERED: CITRIC ACID/SODIUM CITRATE 30 ML CUP PO PRN (01:14)
[2017-08-21] MEDS ORDERED: Nalbuphine Inj 20 MG/ML Ampule IVP PRN ×2 (01:14→19:39)
[2017-08-21] MEDS ORDERED: BUTORPHANOL TARTRATE 2 MG/1 ML VIAL IVP PRN (01:14)
[2017-08-21] MEDS ORDERED: ePHEDrine Inj 5 MG in Normal Saline Flush 1 ML IVP PRN (01:14)
[2017-08-21] MEDS ORDERED: Naloxone Inj 0.01 MG in Normal Saline Flush 1 ML IVP PRN (01:14)
[2017-08-21] MEDS ORDERED: Metoclopramide Inj 10 MG/2 ML VIAL IV PRN (01:14)
[2017-08-21] MEDS ORDERED: NORMAL SALINE 10 ML SYRINGE FLUSH IVP PRN ×3 (01:14→19:46)
[2017-08-21] MEDS ORDERED: Lidocaine 1% 10 MG/ML - 20 ML VIAL SUBCUT PRN (01:14)
[2017-08-21] MEDS ORDERED: MISOPROSTOL 200 MCG TABLET RECTAL PRN (01:14)
[2017-08-21] MEDS ORDERED: CefOXitin Inj 2 GM in Sodium Chloride 0.9% 100 ML IV PRN (01:14)
[2017-08-21] MEDS ORDERED: Oxytocin 20 Units + LR 20 UNIT/1,000 ML BAG IV SCH ×3 (01:15→19:39)
[2017-08-21] MEDS: Lactated Ringers-OB Dept 1,000 ML PRIMARY IV SCH ×3 (01:51→14:01)
[2017-08-21] MEDS: fentaNYL Inj 100 MCG/2 ML VIAL IV PRN ×3 (01:53→04:37)
[2017-08-21 03:43] LABS: Hematocrit [HCT] 36.9 % (37.0-47.0); Hemoglobin [HGB] 12.3 g/dL (12.0-16.0); MEAN CORPUSCULAR HEMOGLOBIN 27.7 PG (27-31); MEAN CORPUSCULAR HGB CONC 33.3 g/dL (33-37); MEAN CORPUSCULAR VOLUME 83.1 FL (81-99); MEAN PLATELET VOLUME 10.9 FL (7.4-12.2); RED BLOOD COUNT 4.44 10^6/uL (4.20-5.40)
[2017-08-21] MEDS ORDERED: Fent/Bupiv 2mcg/0.0625% Epid 250 ML ONE (05:14)
--- NOTE | 2017-08-21 05:50 | CRNA.PROGR ---
<JAZMÍN LEIVA - Last Filed: 08/21/17 05:48> Anesthesia Time - Procedure/Recovery Time Anesthesia : Time In: 05:10 - Other Weight: 95.708 kg Height: 6 ft Body Mass Index (BMI): 28.6 Anesthesia Type: Epidural Obstetrics: Planned vaginal delivery w/ neuraxial labor anesthesia/analog <ANDREWS BALTAZAR - Last Filed: 08/22/17 11:04> Anesthesia Time - Procedure/Recovery Time Anesthesia : Time Out: 19:00
--- NOTE | 2017-08-21 05:51 | CRNA.PROCE ---
Central Neuraxis Block Placemt - - Safety Measures: Time Out Taken - - Type of Block: Epidural Reason for Block: Analgesia Moniters Used During Block: SPO2, NIBP Positioning: Sitting Skin Prep Used: ChloroPrep Skin Infiltration - Enter Amount Used in Comment Field: 1% Xylocaine (mL): Yes ( skinwheal) Spinal Needle Used: 18 Hustead 80 mm Local Anesthetic - Enter Amount Used in Comment Field: 1.5 % Xylocaine with Epinephrine 1:200,000 (mL): Yes (5ml) Number of Centimeters Catheter Threaded: 4 Bioclusive Dressing Applied: Yes Anesthesia Time - Other Weight: 95.708 kg Height: 6 ft Body Mass Index (BMI): 28.6
[2017-08-21] MEDS ORDERED: fentaNYL 2 MCG/BUPIVACAINE 0.0625%/NS 0.9% 250 ML BAG EPIDURAL SCH (06:00)
[2017-08-21] MEDS ORDERED: ALBUTEROL SULFATE 8.5 GM HFA INHALER INH PRN (08:24)
--- NOTE | 2017-08-21 08:35 | OB.PROGRES ---
Interval History: The patient is a 27-year-old 002 at 38-2/7 weeks who presented last night to labor and delivery with contractions every 1-2 minutes. Initially her cervix was 1 cm dilated but then throughout the night she changed to 5 cm. Earlier this morning the patient received an epidural for pain control. The patient's cervix was thought to be 5 cm and 80% and -1 station effaced at 6:00 this morning but then the nurse on labor and delivery this morning checked the patient thought she was 5 cm/50% effaced and -2 and ballotable. There was a question of rupture of membranes at around 0300 hrs. this morning but the patient has not had any leakage of fluid since that time. Currently, the patient is comfortable with her epidural. She cannot palpate her contractions. Patient has a history of induction of labor for her first delivery and then she spontaneously went into labor at 41+ weeks for her second and delivered a 9 lbs. 4 oz. daughter. Her second stage labor, by patient report, was not long. She did not have significant complications nor significant lacerations. The patient believes that this that currently the child is about the same size as her last delivery. However, the patient is not definitely sure. The patient has not had any complications this . Currently, the patient has had an upper respiratory infection for 8 days which is not improving. She has had a cough and congestion. She states that she does not have a sore throat. The mucous that she has when she blows her nose is clear to yellow. She is not currently having fever or chills. Significant's history is that her significant other was diagnosed with strep pharyngitis just early this morning in the ER and given an injection of antibiotics. He just started feeling ill late last night. The patient's other children at home have had upper respiratory infections. Past medical history asthma Past surgical history tonsils No known drug allergies The patient does smoke 1 pack per day Group B strep was negative Objective - Cervical Exam Cervical Exam: 550/-3 ballotable. The head is in the cephalic presentation but I could not easily palpate the head secondary to it being ballotable. [place]: Contractions every 3-5 minutes Heart Rate Interpretation Category: Category I - Labs CBC and BMP: 08/21/17 03:35 - Vital Signs Last Taken Vital Signs: Vital Signs - Last Taken Temperature 98.2 F 08/21/17 06:45 Pulse Rate 87 08/21/17 06:45 Respiratory Rate 18 08/21/17 08:11 Blood Pressure 116/69 08/21/17 06:45 Pulse Ox 98 08/21/17 06:45 - Additional Details Additional Details: Lungs clear to auscultation but initially there was rhonchi and an inspiratory wheeze on the left base. Heart regular rate and rhythm Abdomen is soft and gravid with Jt showing the baby to be in the cephalic presentation. I do not believe that by Jt the baby is 9 lbs. 4 oz. but this is always difficult to assess Assessment and Plan - Assessment / Plan Additional Assessment/Plan Details: Assessment: IUP 38-2/7 weeks with GBS negative. Uncomplicated . Placenta is posterior by 20 week ultrasound The patient presented last evening with latent labor and the patient's cervix changed from 1 cm dilated to 5 cm dilated. The baby's head is still ballotable The patient has a URI and the patient's significant other has strep pharyngitis by a positive rapid strep. He did receive antibiotics. Patient does have an epidural in place and this is providing good analgesia. Plan: Augment contractions with Pitocin Rapid strep to be completed Incentive spirometer 10 times per hour Albuterol inhaler 1-2 puffs every 4-6 hours when necessary Continue to observe closely for cervical change but also had descent. No AROM yet. Await had descent and possibly cervical dilation and then AROM or perhaps patient will have SROM. The patient does have an epidural in place and this is providing good analgesia.
--- NOTE | 2017-08-21 16:41 | OB.PROGRES ---
Interval History: The patient is comfortable. She was slightly nauseated with emesis several hours ago but now is doing well. No gush of fluid. Objective - Cervical Exam Cervical Exam: 6/-2 cephalic and head is much more applied. Cervix is soft and stretchy. AROM with clear fluid after having verbal permission from the patient Sammy Martinez: Contractions every 3 minutes Heart Rate Interpretation Category: Category I - Labs CBC and BMP: 08/21/17 03:35 - Vital Signs Last Taken Vital Signs: Vital Signs - Last Taken Temperature 98.9 F 08/21/17 15:30 Pulse Rate 92 08/21/17 15:30 Respiratory Rate 18 08/21/17 15:30 Blood Pressure 105/42 08/21/17 15:30 Pulse Ox 97 08/21/17 15:30 Assessment and Plan - Assessment / Plan Additional Assessment/Plan Details: Assessment: IUP 38-2/7 weeks with cervical effacement change and head much more applied. Group B strep negative Patient did have some nausea with emesis earlier but now is fine AROM with clear fluid Plan: Pitocin was decreased by half from 10 milliunits to 5 milliunits Continue to observe closely Expectant management Will decrease Pitocin even more if contractions increase in frequency and intensity The patient expressed understanding with the current plan.
--- NOTE | 2017-08-21 19:18 | OB.OP.NOTE ---
Operative Report Surgeon: William Anesthesia Type: Regional (Epidural) Anesthesia Provider: Joann Baeza CRNA Surgery Date: 08/21/17 Preoperative Diagnosis: IUP 38-2/7 weeks. Active labor Postoperative Diagnosis: Same plus spontaneous vaginal delivery Procedure: Pitocin augmentation. Artificial rupture membranes with clear amniotic fluid. Spontaneous vaginal delivery. Repair of superficial vaginal lacerations with 3-0 Vicryl Rapide suture bilaterally. Spontaneous delivery of placenta-the Center appeared intact Estimated Blood Loss (mL): 350 Fluids: Pitocin IV status post delivery of placenta. LR Complications: None apparent Findings at Surgery: Male infant with Apgars 8 and 8, weight 8 pounds 1.5 ounces Placenta appeared intact on exam Indications for the Procedure: Active labor with intrauterine 38-2/7 weeks Description of Procedure: The patient presented in latent labor. Please see my notes. The patient's cervix changed to complete and +1 station. The patient started to push and pushed for about 30+ minutes and delivered a male infant in the OA presentation. The mouth and nose were bulb suctioned after the head and anterior shoulder were delivered. Then the posterior shoulder and then the baby was delivered spontaneously. Delayed cord clamping of about 1 minute was allowed for since the baby was doing very well and had a lusty cry. The cord was then clamped and cut. The baby was handed off to the nurse. Cord blood was then obtained. Cord gases were not obtained since the baby was doing so well. Also, there was a category 1 heart rate tracing during the entire labor process. The placenta then was delivered spontaneously about 15 minutes later. The placenta appeared intact. The uterus was massaged and firm. There were bilateral vaginal skin malone that I did close with 3-0 Vicryl Rapide suture in interrupted sutures. There was good hemostasis at the end of the procedure. A rectal exam was completed and the perineum and posterior vagina appeared intact The procedure was completed. The placenta was examined and appeared intact. The patient and baby will recover in the delivery room. Plan: The patient and baby will recover in the delivery room. CBC in the morning.
[2017-08-21] MEDS ORDERED: LANOLIN HPA 40 GM TUBE TOPICAL PRN (19:39)
[2017-08-21] MEDS ORDERED: GLYCERIN/WITCH HAZEL 1 BOX TOPICAL PRN (19:39)
[2017-08-21] MEDS ORDERED: ACETAMINOPHEN 325 MG TABLET PO PRN (19:39)
[2017-08-21] MEDS ORDERED: diphenhydrAMINE 25 MG CAPSULE PO PRN (19:39)
[2017-08-21] MEDS ORDERED: Ondansetron ODT Tab 4 MG TAB PO PRN (19:39)
[2017-08-21] MEDS: BENZOCAINE/MENTHOL SPRAY 56 GM BOTTLE TOPICAL PRN (21:23)
[2017-08-21] MEDS: DOCUSATE 100 MG CAPSULE PO SCH (23:25)
[2017-08-21] MEDS: Lactated Ringers 1,000 ML PRIMARY IV SCH (23:27)
[2017-08-22] MEDS: IBUPROFEN 800 MG TABLET PO PRN ×2 (02:55→13:02)
[2017-08-22 05:24] LABS: Hematocrit [HCT] 28.1 % (37.0-47.0); MEAN CORPUSCULAR HEMOGLOBIN 27.5 PG (27-31); MEAN CORPUSCULAR VOLUME 85.9 FL (81-99); MEAN PLATELET VOLUME 11.4 FL (7.4-12.2); RED BLOOD COUNT 3.27 10^6/uL (4.20-5.40)
[2017-08-22] MEDS: HYDROcodone-APAP 5 MG -325 MG TABLET PO PRN ×3 (08:41→16:38)
[2017-08-22] MEDS ORDERED: Prenatal Multivitamin Tab 1 TAB TAB PO SCH (09:00)
[2017-08-22] MEDS: Lactated Ringers 1,000 ML PRIMARY IV SCH (09:03)
--- NOTE | 2017-08-22 09:03 | OB.PROGRES ---
Subjective Post Op Day: 1 Pain Management: nothing by mouth [place] Catheter: No Flatus: Yes Diet: NPO (For bilateral tubal ligation this morning) [place] Feeding Method: Formula Feeding Ambulating: Yes Concerns / Additional Information: The patient would like a bilateral tubal ligation which has been plan for some time. Her primary [employer] physician is coming in today to complete this. The patient has been nothing by mouth. Objective General: No acute distress CardioVascular: Regular rate and rhythm Respiratory: Clear to auscultation Bowel Sounds: Present (Abdomen soft and appropriately tender over the fundus with massage U -0 to U -1 with massage) Extremities: Negative Maria Luisa's - Bilaterally Assesstment / Plan Assessment / Plan: Assessment: day #1 status post spontaneous vaginal delivery Patient's H&H is 08/20 Patient is nothing by mouth Patient desires bilateral tubal ligation. She desires permanent sterilization since she has satisfied parity Plan: Bilateral tubal ligation via infraumbilical mini laparotomy today Ferrous sulfate 325 mg by mouth twice a day for 1 month Colace 100 mg 1 by mouth daily to twice a day when necessary constipation Ibuprofen 800 mg 1 tablet by mouth with food or milk 3 times a day
[2017-08-22] MEDS ORDERED: Famotidine Inj 20 MG in Normal Saline Flush 10 ML IVP ONE (09:14)
[2017-08-22] MEDS ORDERED: CITRIC ACID/SODIUM CITRATE 30 ML CUP PO ONE (09:14)
[2017-08-22] MEDS ORDERED: Metoclopramide Inj 10 MG/2 ML VIAL IM ONE (09:14)
[2017-08-22] MEDS ORDERED: FAMOTIDINE 20 MG/2 ML VIAL IVP ONE (09:23)
[2017-08-22] MEDS ORDERED: fentaNYL Inj 100 MCG/2 ML VIAL ONE ×2 (09:27→10:00)
[2017-08-22] MEDS ORDERED: MIDAZOLAM 5 MG/1 ML ONE (09:27)
[2017-08-22] MEDS ORDERED: Propofol 200 MG/20 ML VIAL IV ONE (09:27)
[2017-08-22] MEDS ORDERED: Sodium Chloride 0.9% vial 10 ML ONE (09:32)
[2017-08-22] MEDS ORDERED: LIDOCAINE MPF 2% - 5 ML (20 MG/1 ML) ONE (09:33)
[2017-08-22] MEDS ORDERED: SUCCINYLCHOLINE CHLORIDE 20 MG/1 ML - 10 ML ONE (09:35)
[2017-08-22] MEDS ORDERED: DEXAMETHASONE PF 10 MG/1 ML VIAL ONE (09:35)
[2017-08-22] MEDS ORDERED: BUPivacaine Inj 0.25% PF - 10ml vial ONE (09:57)
[2017-08-22] MEDS ORDERED: DIPH,PERTUSS,TET(ADACEL) VAC/PF 0.5 ML (Tdap) IM ONE (10:00)
[2017-08-22] MEDS ORDERED: ONDANSETRON 4 MG/2 ML VIAL ONE (10:11)
[2017-08-22] MEDS ORDERED: KETOROLAC 30 MG/1 ML VIAL ONE (10:16)
--- NOTE | 2017-08-22 10:26 | OB.OP.NOTE ---
Operative Report Surgeon: Yani Shading Painter: Ray hTomas MD Anesthesia Type: General Anesthesia Provider: Joann Baeza CRNA Surgery Date: 08/22/17 Preoperative Diagnosis: P3 desires permanent sterilization Postoperative Diagnosis: Same Procedure: PPTL with Filshie Clips Estimated Blood Loss (mL): 0 Fluids: 800 ml Complications: None Findings at Surgery: Normal tubes Indications for the Procedure: 27 yo P3 females s/p of her third child yesterday. Pt. desires PPTL. Description of Procedure: The patient was taken to the operating room and placed supine where general laryngeal mask anesthesia was administered. She was prepped and draped in the normal sterile fashion. Quarter percent Marcaine with epinephrine was injected at the inferior edge of the umbilicus. An infraumbilical transverse incision was made approximately 3 cm in length. Subcutaneous case tissue and fascia were divided with Bovie cautery. The peritoneal cavity was entered bluntly. Heraclio retractor was placed. The right fallopian tube was identified at the cornua and followed to the fimbriated end. A single Filshie clip was applied to the mid isthmic portion of the tube. The left fallopian tube was then identified at its cornua and followed to the fimbriated end. A single Filshie clip was applied to the mid isthmic portion of the left tube. Quarter percent Marcaine with with epinephrine was then injected into the mesosalpinx just proximal to both clips. Good hemostasis was noted on both tubes. The Heraclio retractor was removed. The fascia was closed with a running 0 Vicryl suture on a UR 6 needle. Subcutaneous space was reapproximated with a running 3-0 Vicryl suture. The skin was then closed with a 3-0 barbed suture and the wound was dressed to properly. Sponge lap and needle counts were correct 2. There were no, locations at surgery. The patient left to recovery in good condition. Plan: Resume orders and care.
[2017-08-22] MEDS ORDERED: HYDROmorphone 2 MG/1 ML ONE (10:39)
[2017-08-22] MEDS: HYDROmorphone 2 MG/1 ML IVP ONE ×3 (10:41→10:55)
--- NOTE | 2017-08-22 10:43 | DCSUMMARY ---
Hospitalization Summary Admit Date: 08/20/17 Discharge Date: 08/22/17 Primary Diagnosis:: Term , Delivered Secondary Diagnosis:: Desires Permanent Sterilization Primary Surgery and Date: [facility] 08/22/17 Delivery Type: Vaginal Hospital Course: Normal, uncomplicated labor, delivery, and postoperative course. Discharge to home on day 1 in good condition. F/u in 2 weeks. / Postop Complications: None Complications: None Exam - Vitals Vital Signs: Vital Signs Temperature 97.8 F Temperature Source Oral Pulse Rate [Pulse Oximeter 64 Right] Pulse Rate 93 Respiratory Rate [Lower 18 Abdomen] Respiratory Rate 18 Blood Pressure [Right Arm] 129/72 Blood Pressure 125/67 Pulse Ox 97 Oxygen Flow Rate [Lower RA Abdomen] Oxygen Delivery Method Room Air Height 6 ft Weight 211 lb
--- NOTE | 2017-08-22 11:07 | CRNA.PROGR ---
Anesthesia Time - - Start date: 08/22/17 End date: 08/22/17 - Procedure/Recovery Time Anesthesia : Time In: 09:51 Anesthesia : Time Out: 10:39 Anesthesia : Total Time: 48 - Total Anesthesia Time Total Anesthesia Time (minutes): 48 - Other Weight: 95.708 kg Height: 6 ft Body Mass Index (BMI): 28.6 Physical Status: P2 (Post ) Anesthesia Type: General Anesthesia : ET
--- NOTE | 2017-08-22 11:17 | CRNA.PROGR ---
Anesthesia Note - Progress Notes Anesthesia Progress Note: complaining re: sore back at level of epidural insertion. No hematoma, no obvious bruising. No headache, Proceeding with tubal with a GETA.
[2017-08-22 12:44] VITALS: RESP 18
[2017-08-22] MEDS: DOCUSATE 100 MG CAPSULE PO SCH (13:04)
[2017-08-22 13:23] VITALS: BP 129/84; TEMP 97.6; O2SAT 100
[2017-08-22] MEDS: BENZOCAINE/MENTHOL SPRAY 56 GM BOTTLE TOPICAL PRN (14:57)
[2017-08-22] MEDS ORDERED: HYDROcodone-APAP 5 MG -325 MG TABLET PO PRN (19:11)
[2017-08-22] MEDS ORDERED: IBUPROFEN 800 MG TABLET PO SCH (20:00)
== END 2017-08-22 19:57 | disposition home or self-care (01) | DRG 767 ==
LOC: OBOP 22:50 → OBIP 08-21 01:00
PROVIDERS: ADMIT Student in an Organized Health Care Education/Training Program; ATTEND Obstetrics & Gynecology